=== PATIENT | male | born 1955 | race Caucasian/White ===

== ENCOUNTER 2018-08-12 10:00 | Inpatient (IN) | payer OTHER ==
[~2018-08-12] VITALS: Ht 177.8 cm; Wt 97.5 kg
[2018-08-12] MEDS ORDERED: VERAPAMIL ER180 MG (11:45)
[2018-08-12] MEDS ORDERED: LISINOPRIL20 MG (11:46)
[2018-08-12] MEDS ORDERED: ATORVASTATIN CA20 MG (11:46)
[2018-08-23] MEDS ORDERED: OXYC1TAB9 PO (13:21)
[2018-08-23] MEDS ORDERED: NEURONTIN300 MG PO (13:21)
[2018-08-23] MEDS ORDERED: HYOSCYAMINE0.125 M1 SL (13:21)
== END 2018-08-23 14:13 | disposition home or self-care (01) | DRG 331 ==
LOC: O/R 08-20 06:23 → SURG 08-20 06:23 → SURH 08-20 08:45 → SURG 08-20 19:24
PROVIDERS: ADMIT Surgery
PROC: 0DJD8ZZ Inspection of Lower Intestinal Tract, Via Natural or Artificial Opening Endoscopic (ICD-10-PCS; 2018-08-20)
PROC: 0DTN4ZZ Resection of Sigmoid Colon, Percutaneous Endoscopic Approach (ICD-10-PCS; principal; 2018-08-20 08:45)
PROC: 4A12X4Z Monitoring of Cardiac Electrical Activity, External Approach (ICD-10-PCS; 2018-08-21)
DX: K57.32 Diverticulitis of large intestine without perforation or abscess without bleeding (principal); K66.0 Peritoneal adhesions (postprocedural) (postinfection); I11.9 Hypertensive heart disease without heart failure; G47.33 Obstructive sleep apnea (adult) (pediatric); E78.00 Pure hypercholesterolemia, unspecified; E66.8 Other obesity